=== PATIENT | female | born 1975 | race African-American/Black ===

== ENCOUNTER 2022-03-23 00:57 | Day surgery (SDC) | payer BC, SELFPAY ==
[2022-03-17 18:11] VITALS: BMI 29.2
--- NOTE | 2022-03-17 18:13 | SUR.PREOP ---
Report to the Outpatient Waiting Room, entrance under the green pavilion located off [facility], at time _0600 on date __03/23/22 . Planned Procedure Time: _0800 . Time changes happen often and if your time is changed the preop area will call you the afternoon before. - You and your visitor will be asked to self-screen and do not enter if you have any COVID symptoms. - We encourage only one visitor and NO visitors under age 16 are allowed at this time. Your visitor will receive communication by the phone number that is given day of service. - The patient visitor is requested to social distance or may leave the building when not with patient due to restrictions. - A mask is required within the hospital. Patients may have clear liquids (water, carbonated beverages, clear teas, apple juice) until 3 hours prior to surgery with a maximum of 20 ounces. - No food from midnight until time of surgery - Infants may have breast milk until 4 hours before surgery, formula 6 hours prior to surgery. - Children will be allowed to drink immediately following surgery. If applicable, please bring a bottle or sippy cup to assist with drinking. Juice, water, soda, and popsicles are readily available. For infants on formula, please bring formula the day of surgery. Pacifiers are allowed. Take the following medications with a SIP of water the morning of surgery: __n/a Medications to discontinue per physician n/a Date to take last dose___n/a Please no make-up, nail egyptian, hairspray, perfume, deodorant, or body powder the day of surgery. No jewelry (including any body piercings) or valuables the day of surgery, leave them at home. Please take a shower or bath the night before, or the morning of, surgery with an antibacterial soap. Wear comfortable, loose fitting clothing. Children are encouraged to wear pajamas. - Jewelry must be removed prior to entering the operating room. Rings and piercings that are not removed may be cut off. - The hospital will not accept responsibility for valuables. - Please leave all valuables, including medications, at home the day of surgery. If you are going home after surgery, a licensed funeral driver must drive you home. - NO public transportation without another adult. - We recommend that an adult stay with you for 24 hours following discharge. - We also recommend that you do not drive, make important decision, drink alcoholic beverages, or take any drugs that were not prescribed by your health care provider for at least 24 hours after your discharge time. For Pediatric surgeries, we recommend two adults accompany the child home. Follow any additional instructions given to you from your surgeon. If you or anyone in your household have experienced Covid symptoms in the past week, please notify your surgeon or the nurse liaison at the phone number below for possible testing. Telephone instructions given to parveen nicole and asked if any additional questions and then verbalized understanding. Patient advised to call surgeon office or pre surgery nurse liaison [phone] if any additional questions.
--- NOTE | 2022-03-22 16:04 | WPDANESEPPF ---
Anes - Initial Pre Proc Eval Procedure: Operation Date: 03/23/22 09:00 Proposed Procedures p Hysteroscopy with Dilation and Curettage - Bam Keith MD Date/Time: 03/22/22 16:04 Surgeon: Bam Keith MD Pre Op Diagnosis: Menometrorrhagia Patient Data Age: 47 Gender: F Height: 1.63 m Weight: 77.27 kg Allergies Allergy/AdvReac Type Severity Reaction Status Date / Time Sulfa (Sulfonamide Allergy Intermediate HIVES Verified 03/23/22 07:18 Antibiotics) Home Medications Medication Instructions Recorded Confirmed Type tramadol 50 mg tablet 50 mg PO Q6H PRN pain #20 tabs 03/13/22 03/23/22 Rx Patient hx anesthesia problems: none Family hx anesthesia problems: none Results Review: All pre-operative results and documents have been reviewed as part of the pre-operative evaluation. [facility] Past Medical History Medical History (Updated 03/22/22 @ 16:04 by Jose Isbell MD) GERD (gastroesophageal reflux disease) Headache Hypertension Overweight (BMI 25.0-29.9) Screening mammogram, encounter for Surgical History Surgical History (Updated 03/14/22 @ 11:20 by TRICIA Rosenthal) History of hysteroscopy (03/15/20) hscope D&C/ Ablation/ B Lscope salpingectomy Social History Social History (Updated 03/14/22 @ 11:21 by TRICIA Rosenthal) Smoking status: Never smoker Alcohol intake: current Alcohol use details: 1-2 a month Substance use: never Substance use type: does not use Living arrangements: alone Additional living arrangements comments: 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 Gender identity (if verbalized by the patient): Female Sexual Orientation (if Verbalized by the Patient): Straight or Heterosexual Spiritual care concerns: No Anes - Eval Final PreProcedure Day of Procedure 03/22/22 16:04 Patient weight: overweight Heart: regular rate and rhythm Lungs: clear to auscultation and normal air movement Airway: Mallampati scale class II Neurological: alert and oriented Last oral intake: >/= 8 hours ASA classification: II Emergent: no Anesthetic plan: proceed Anesthesia type and monitoring: general GIVS and LMA Results Review: All pre-operative results and documents have been reviewed as part of the pre-operative evaluation. Informed Consent: The patient's anesthetic plan and its attendant risks and benefits were discussed with the patient/family/POA. Questions were solicited and answers provided to the satisfaction of the patient/family/POA.
[2022-03-23 07:18] VITALS: BP 130/87; PULSE 71; RESP 20; TEMP 37.1; O2SAT 98
[2022-03-23] MEDS: ACETAMINOPHEN 500 MG TABLET 1000 MG PO (07:20)
[2022-03-23] MEDS: LACTATED RINGERS 1,000 ML 30 ML IV CONT (07:50)
--- NOTE | 2022-03-23 08:33 | WPDHPUPDATE1 ---
History and Physical Update Update Date/Time: 03/23/22 08:33 History and Physical has been reviewed, including an updated exam of the patient. There are NO changes in the patient's condition. Risks, benefits, and alternatives have been discussed and questions answered. Patient agrees to proceed with procedure.
--- NOTE | 2022-03-23 09:12 | P.OP_ITS ---
Procedure Note - Detailed Date of Procedure 03/23/22 Pre-op Diagnosis 1. Irregular vaginal bleeding 2. History of endometrial ablation Post-op Diagnosis Same Procedure Performed 1. Hysteroscopy with uterine curettings Surgeon Bam Keith MD Findings Thickened endometrial cavity with scarring throughout consistent with prior endometrial ablation. No polyps or fibroids are noted. Description of Procedure Patient prepped and draped in usual manner for this procedure. Cervix was r eadily dilated to allow the hysteroscope to be placed. Once this was placed evaluation endometrial cavity real scarring throughout irregular tissue. There was no hyperplastic or other significantly abnormal tissue, as well as no polyps or fibroids. Curettings of the endometrial cavity were undertaken with a good sampling of tissue noted. At this point the procedure was terminated the patient was sent cover room in stable condition. Drains No Packing No Pathology Yes Complications No immediate complications Condition Stable Disposition PACU [facility] Billing Surgery - Charge Forward: Surgery Billing
[2022-03-23 09:16] VITALS: BP 126/67; PULSE 72; RESP 12; O2SAT 100
[2022-03-23] MEDS: KETOROLAC 30 MG/ML VIAL (*BKC) IV PUSH (09:33)
[2022-03-23 09:45] VITALS: BP 132/74; PULSE 68; RESP 16
[2022-03-23] MEDS: oxyCODONE HCL (*CRX) 5 MG TAB IR PO (09:58)
[2022-03-23 10:15] VITALS: BP 126/72; PULSE 62
== END 2022-03-23 10:41 | disposition home or self-care (01) ==
PROVIDERS: PCP Internal Medicine; Visit Provider Obstetrics & Gynecology
PROC: 0U5B8ZZ Destruction of Endometrium, Via Natural or Artificial Opening Endoscopic (ICD-10-PCS; CPT 58563; principal; 2022-03-23 09:00)
DX: N93.9 Abnormal uterine and vaginal bleeding, unspecified (principal); N83.202 Unspecified ovarian cyst, left side
CPT/HCPCS: 58558; 88305; A9270; J1100; J1885; J2250; J2405; J2704; J3010; J7030; J7120